=== PATIENT | male | born 1995 | race Caucasian/White ===

== ENCOUNTER 2022-04-28 01:42 | Emergency (ER) | payer OTHER ==
--- NOTE | 2022-04-28 02:17 | ERPHSYRPT ---
- History of Present Illness Time Seen by Provider: 04/28/22 02:11 Source: patient Exam Limitations: no limitations Patient Subjective Stated Complaint: pt states he fell on his outstretchretched hand today. states he is having pain in his lt wrist Triage Nursing Assessment: pt alert and oriented, answers questions approp. pt ambulatory with steady gait noted. respirations nonlabored. skin warm and dry. swelling noted to lt wrist. radial pulse and cap refill wnl. pt reports normal sensation to lt hand. Physician History: 26-year-old presented in the ER with chief complaint of left wrist pain after he fell on outstretched hand almost 8 hours ago while moving stuff. Since then having moderate intensity sharp pain with movements and better with being still. No numbness or tingling in the fingers. No injury anywhere else. Occurred: hours ago (8) Method of Injury: fell Quality: sharpness Severity of Pain-Max: moderate Severity of Pain-Current: moderate Extremities Pain Location: wrist: left Modifying Factors: Improves With: immobilization. Worsens With: movement Associated Symptoms: none Allergies/Adverse Reactions: Penicillins Allergy (Unknown, Verified 04/28/22 01:55) sulfamethoxazole [From Bactrim] Allergy (Unknown, Verified 04/28/22 01:55) trimethoprim [From Bactrim] Allergy (Unknown, Verified 04/28/22 01:55) Hx Tetanus, Diphtheria Vaccination/Date Given: Yes Hx Influenza Vaccination/Date Given: No Hx Pneumococcal Vaccination/Date Given: No Immunizations Up to Date: Yes Travel Risk - International Travel Have you traveled outside of the country in past 3 weeks: No - Coronavirus Screening Are you exhibiting any of the following symptoms?: No Close contact with a COVID-19 positive Pt in past 14-21 Days: No - Vaccine Status Have you recieved a Covid-19 vaccination: No - Review of Systems Constitutional: No Symptoms Ears, Nose, & Throat: No Symptoms Respiratory: No Symptoms Cardiac: No Symptoms Abdominal/Gastrointestinal: No Symptoms Genitourinary Symptoms: No Symptoms Musculoskeletal: Fall, Joint Pain Skin: No Symptoms Endocrine: No Symptoms - Past Surgical History Past Surgical History: Yes Other Surgical History: foot surgery - Social History Smoking Status: Never smoker Drug Use: none Patient Lives Alone: No - Nursing Vital Signs Nursing Vital Signs: Initial Vital Signs Temperature 96.7 F 04/28/22 01:46 Pulse Rate 77 04/28/22 01:46 Respiratory Rate 16 04/28/22 01:46 Blood Pressure 142/90 04/28/22 01:46 O2 Sat by Pulse Oximetry 97 04/28/22 01:46 Pain Scale Pain Intensity 6 - Physical Exam General Appearance: no apparent distress Neck Exam: normal inspection, full range of motion Cardiovascular/Respiratory Exam: normal breath sounds, regular rate/rhythm Elbow/Forearm Exam: normal inspection, non-tender, no evidence of injury, normal ROM Wrist Exam: normal inspection, bone tenderness (Left wrist), limited ROM (Left wrist) Hand Exam: normal inspection, non-tender, no evidence of injury, normal ROM Neuro/Tendon Exam: normal sensation, normal motor functions Mental Status Exam: alert, oriented x 3, cooperative Skin Exam: normal color SpO2 Interpretation: normal SpO2: 97 O2 Delivery: Room Air - Progress Progress: pain not gone completely Progress Note: 04/28/22 02:14 Given ibuprofen for symptomatic relief. X-rays negative for any acute fracture dislocation reviewed by me, official report is pending. I believe has a sprain, placed in a Velcro splint and outpatient orthopedic follow-up. Counseled pt/family regarding: diagnosis, need for follow-up, rad results - Departure Departure Disposition: Home Clinical Impression: Left wrist sprain Condition: Stable Critical Care Time: No Referrals: [facility] [NON-STAFF PHY W/O PRIVILEGES] - Follow up/PCP as directed (1-2 days for reevaluation) Instructions: Common Wrist Injuries (DC) Additional Instructions: Tylenol/ibuprofen as needed for pain. Avoid exertional work with left upper extremity. Follow-up with orthopedic surgery for evaluation. Return to ER for worsening pain. Forms: Work/School Release Form Prescriptions: Ibuprofen 600 mg PO Q6HPRN PRN 10 Days #20 tablet PRN Reason: Pain
[2022-04-28 02:40] VITALS: BP 129/93; PULSE 56
--- NOTE | 2022-04-28 08:47 | XRAY ---
Indication: Pain following lifting. Comparison: None 3 view left wrist demonstrates normal bones, articulation, and soft tissues.
[2022-04-29 14:38] VITALS: O2SAT 97
== END 2022-04-28 02:41 | disposition home or self-care (01) ==
LOC: ED 01:42
DX: S63.502A Unspecified sprain of left wrist, initial encounter (principal); W19.XXXA Unspecified fall, initial encounter; M25.532 Pain in left wrist; Z28.310 Unvaccinated for COVID-19
CPT/HCPCS: 73110; 99283; L3908